=== PATIENT | female | born 1945 | race Caucasian/White ===

== ENCOUNTER 2020-09-17 20:50 | Inpatient (IN) | payer MEDICARE, BC ==
[2020-09-17] MEDS ORDERED: Lisinopril 10 MG TAB ONE (22:01)
[2020-09-17] MEDS ORDERED: Metoprolol Tartrate 50 MG TAB ONE (22:01)
[2020-09-17 22:11] LABS: #Eosinphils 0.3 10x3/uL (0.0-0.5); #Monocytes 0.7 10x3/uL (0.0-1.1); %Basophils 0.5 % (0.0-2.0); %Eosinophils 3.5 % (0.0-6.0); %Lymphocytes 20.8 % (18.0-47.0); %Monocytes 9.4 % (0.0-10.0); %Neutrophils 65.4 % (40.0-75.0); Hemoglobin 12.5 g/dL (12.0-15.5); Mean Corpuscular HGB CONC 32.6 g/dL (32.0-36.0); Mean Corpuscular Hemoglobin 32.3 pg (27.0-33.0); Mean Platelet Volume 10.2 fl (7.4-10.4); Platelet Count 181 10x3/uL (150-450); RBC Distribution Width 13.6 % (11.5-14.5); Red Blood Cell (RBC) Count 3.87 10x6/uL (3.90-5.03); White Blood Cell (WBC) Count 7.7 10x3/uL (3.5-10.5)
[2020-09-17 22:24] LABS: ALT (SGPT) 19 U/L (8-55); AST (SGOT) 19 U/L (5-34); Albumin 4.2 g/dL (3.4-4.8); Alkaline Phosphatase 52 U/L (40-110); Anion Gap 14 mmol/L (10-20); BUN (Urea Nitrogen) 15 mg/dL (9.8-20.1); Bilirubin, Total 0.5 mg/dL (0.2-1.2); Calc. Creatinine Clearance 0 mL/min (70-130); Calcium 8.8 mg/dL (7.8-10.44); Carbon Dioxide 27 mmol/L (23-31); Chloride 105 mmol/L (98-107); Globulin 2.3 g/dL (2.4-3.5); Glucose 103 mg/dL (83-110); Potassium 3.8 mmol/L (3.5-5.1); Protein, Total 6.5 g/dL (5.8-8.1); Sodium 142 mmol/L (136-145)
[2020-09-17 22:50] LABS: CKMB 2.7 ng/mL (0-6.6)
[2020-09-17] MEDS ORDERED: Aspirin 325 MG TAB ONE (23:20)
[2020-09-17] MEDS ORDERED: Nitroglycerin 2% Ointment 1 INCH/1 GM Packet ONE (23:20)
[2020-09-18] MEDS ORDERED: Acetaminophen 325 MG TAB PO PRN (00:13)
[2020-09-18] MEDS ORDERED: Zolpidem Tartrate 5 MG TAB PO PRN (00:13)
[2020-09-18] MEDS ORDERED: Guaifenesin DM 100-10/5 ML UDCUP PO PRN (00:13)
[2020-09-18] MEDS ORDERED: Senokot S 8.6-50 MG TAB PO PRN (00:13)
[2020-09-18] MEDS ORDERED: HYDROcodone/Acetaminophen 5/325 mg Tablet PO PRN (00:13)
[2020-09-18] MEDS ORDERED: ALPRAZolam 0.25 MG TAB PO PRN (00:14)
[2020-09-18] MEDS ORDERED: hydrALAZINE 20 MG/ML VIAL SLOW IVP PRN (00:16)
[2020-09-18 02:25] LABS: CKMB 4.2 ng/mL (0-6.6)
[2020-09-18] MEDS ORDERED: Enoxaparin Sodium 80 MG/0.8 ML SYRINGE SC SCH (05:30)
[2020-09-18 06:50] LABS: Anion Gap 13 mmol/L (10-20); BUN (Urea Nitrogen) 16 mg/dL (9.8-20.1); Calc. Creatinine Clearance 58 mL/min (70-130); Calcium 9.3 mg/dL (7.8-10.44); Carbon Dioxide 28 mmol/L (23-31); Cardiac Risk 2.7 (Less than 4.5); Chloride 105 mmol/L (98-107); Cholesterol 140 mg/dl (< 200 Desired); Glucose 96 mg/dL (83-110); HDL Cholesterol 51 mg/dL (>60 Neg Risk); LDL Cholesterol, Calculated 66 mg/dL; Potassium 4.2 mmol/L (3.5-5.1); Sodium 142 mmol/L (136-145); Triglycerides 116 mg/dL (Less than 150)
[2020-09-18 07:04] LABS: CKMB 4.9 ng/mL (0-6.6)
[2020-09-18] MEDS ORDERED: GUAIFENESIN SF SOLN 200 MG/10 ML UDCUP PO PRN (08:03)
[2020-09-18] MEDS ORDERED: Benzonatate 100 MG CAP PO PRN (08:03)
[2020-09-18] MEDS ORDERED: Ondansetron PF 4 MG/2 ML Vial IVP PRN (08:03)
[2020-09-18] MEDS ORDERED: Ondansetron ODT 4 MG TAB PO PRN (08:03)
[2020-09-18] MEDS ORDERED: Loperamide HCl 2 MG CAP PO PRN (08:03)
[2020-09-18] MEDS ORDERED: Calcium Carbonate 500 MG ChewTAB PO PRN (08:03)
[2020-09-18] MEDS ORDERED: Loratadine 10 MG TAB PO PRN (08:03)
[2020-09-18] MEDS ORDERED: Cepastat Lozenges 1 LOZ PO PRN (08:03)
[2020-09-18] MEDS ORDERED: Sodium Chloride 0.65% Nasal 44 ML BOT EA NARE PRN (08:03)
[2020-09-18] MEDS ORDERED: Carvedilol 6.25 MG TAB PO SCH (08:45)
[2020-09-18] MEDS ORDERED: FLU VACC QS2020-21(65YR UP)/PF 240 MCG/0.7 ML SYRINGE IM ONE (09:00)
[2020-09-18] MEDS: Aspirin 81 mg Enteric Coated Tablet PO SCH (09:00)
[2020-09-18] MEDS: Levothyroxine Sodium 88 MCG TAB PO SCH (09:00)
[2020-09-18] MEDS ORDERED: Metoprolol Tartrate 50 MG TAB PO SCH (09:00)
[2020-09-18] MEDS: Hydrochlorothiazide 25 MG TAB PO SCH (09:00)
[2020-09-18] MEDS ORDERED: Lisinopril/Hydrochlorothiazide 20 mg/12.5 mg Tablet PO SCH (09:00)
[2020-09-18] MEDS ORDERED: Enoxaparin Sodium 40 MG/0.4 ML SYRINGE SC SCH (09:00)
[2020-09-18] MEDS: Lisinopril 20 MG TAB PO SCH (09:01)
[2020-09-18 14:23] LABS: SARS-CoV-2 PCR by NAA Not Detected (NotDetected)
[2020-09-18] MEDS: Carvedilol 6.25 MG TAB PO SCH (16:55)
[2020-09-18] MEDS ORDERED: Rosuvastatin 10 MG TAB PO SCH (21:00)
[2020-09-18] MEDS ORDERED: Calcium Carbonate 600 MG + Vit D TAB PO SCH (21:00)
[2020-09-19 06:50] LABS: #Eosinphils 0.3 10x3/uL (0.0-0.5); #Monocytes 0.7 10x3/uL (0.0-1.1); #Neutrophils 3.7 10x3/uL (1.5-8.4); %Basophils 0.7 % (0.0-2.0); %Eosinophils 4.8 % (0.0-6.0); %Lymphocytes 21.8 % (18.0-47.0); %Monocytes 11.8 % (0.0-10.0); %Neutrophils 60.6 % (40.0-75.0); Hemoglobin 12.5 g/dL (12.0-15.5); Mean Corpuscular Hemoglobin 31.4 pg (27.0-33.0); Mean Corpuscular Volume 98.2 fl (81.6-98.3); Mean Platelet Volume 10.2 fl (7.4-10.4); Platelet Count 156 10x3/uL (150-450); RBC Distribution Width 13.9 % (11.5-14.5); Red Blood Cell (RBC) Count 3.98 10x6/uL (3.90-5.03)
[2020-09-19 07:00] LABS: Anion Gap 16 mmol/L (10-20); BUN (Urea Nitrogen) 18 mg/dL (9.8-20.1); Calc. Creatinine Clearance 59 mL/min (70-130); Calcium 9.4 mg/dL (7.8-10.44); Carbon Dioxide 25 mmol/L (23-31); Chloride 105 mmol/L (98-107); Glucose 104 mg/dL (83-110); Potassium 3.8 mmol/L (3.5-5.1); Sodium 142 mmol/L (136-145)
[2020-09-19] MEDS ORDERED: Enoxaparin Sodium 40 MG/0.4 ML SYRINGE SC SCH (09:00)
[2020-09-19] MEDS: Lisinopril 20 MG TAB PO SCH (09:14)
[2020-09-19] MEDS: Levothyroxine Sodium 88 MCG TAB PO SCH (09:14)
[2020-09-19] MEDS: Hydrochlorothiazide 25 MG TAB PO SCH (09:15)
[2020-09-19] MEDS: Aspirin 81 mg Enteric Coated Tablet PO SCH (09:15)
[2020-09-19] MEDS: Carvedilol 6.25 MG TAB PO SCH (09:16)
[2020-09-19] MEDS ORDERED: Amlodipine 5 MG TAB PO SCH (10:45)
[2020-09-19 11:40] VITALS: BP 137/66; TEMP 97.5
[2020-09-20] MEDS ORDERED: Amlodipine 5 MG TAB PO SCH (09:00)
== END 2020-09-19 14:21 | disposition home or self-care (01) | DRG 305 ==
LOC: CSHERS 20:50 → CSHTELE 09-18 01:45 → OBSVTOIN 09-18 08:02
PROVIDERS: ADMIT Student in an Organized Health Care Education/Training Program; ATTEND Family Medicine
DX: I16.0 Hypertensive urgency (principal); E78.5 Hyperlipidemia, unspecified; Z20.822 Contact with and (suspected) exposure to COVID-19; I12.9 Hypertensive chronic kidney disease with stage 1 through stage 4 chronic kidney disease, or unspecified chronic kidney disease; E03.9 Hypothyroidism, unspecified; N18.32 Chronic kidney disease, stage 3b; R77.8 Other specified abnormalities of plasma proteins; F41.9 Anxiety disorder, unspecified; E66.9 Obesity, unspecified; Z79.82 Long term (current) use of aspirin; Z79.890 Hormone replacement therapy; Z79.899 Other long term (current) drug therapy; Z68.38 Body mass index [BMI] 38.0-38.9, adult
CPT/HCPCS: 36415; 36416; 80048; 80053; 80061; 82553; 83880; 84443; 84484; 85025; 87635; 93005; 93306; 96372; G0378; J1650; U0003; U0005

== ENCOUNTER 2021-08-30 12:11 | Emergency (ER) | payer MEDICARE, BC | END 2021-08-30 13:40 | disposition home or self-care (01) | LOC: CSHERS 12:11 | DX: R60.0 Localized edema (principal); E78.5 Hyperlipidemia, unspecified; E03.9 Hypothyroidism, unspecified; I10 Essential (primary) hypertension ==

== ENCOUNTER 2021-11-29 13:56 | Emergency (ER) | payer MEDICARE, BC ==
[2021-11-29 16:46] LABS: #Eosinphils 0.2 10x3/uL (0.0-0.5); #Monocytes 0.6 10x3/uL (0.0-1.1); #Neutrophils 4.4 10x3/uL (1.5-8.4); %Basophils 0.4 % (0.0-2.0); %Eosinophils 3.4 % (0.0-6.0); %Lymphocytes 20.3 % (18.0-47.0); %Monocytes 9.5 % (0.0-10.0); %Neutrophils 66.1 % (40.0-75.0); Hemoglobin 12.4 g/dL (12.0-15.5); Mean Corpuscular HGB CONC 32.9 g/dL (32.0-36.0); Mean Corpuscular Volume 97.4 fl (81.6-98.3); Mean Platelet Volume 10.3 fl (7.4-10.4); Platelet Count 176 10x3/uL (150-450); RBC Distribution Width 13.6 % (11.5-14.5); Red Blood Cell (RBC) Count 3.87 10x6/uL (3.90-5.03); White Blood Cell (WBC) Count 6.7 10x3/uL (3.5-10.5)
[2021-11-29 16:56] LABS: ALT (SGPT) 13 U/L (8-55); AST (SGOT) 17 U/L (5-34); Albumin 4.1 g/dL (3.4-4.8); Alkaline Phosphatase 54 U/L (40-110); Anion Gap 15 mmol/L (10-20); BUN (Urea Nitrogen) 15 mg/dL (9.8-20.1); Bilirubin, Total 0.6 mg/dL (0.2-1.2); Calc. Creatinine Clearance 0 mL/min (70-130); Calcium 9.5 mg/dL (7.8-10.44); Carbon Dioxide 26 mmol/L (23-31); Chloride 105 mmol/L (98-107); Globulin 2.7 g/dL (2.4-3.5); Glucose 92 mg/dL (83-110); Potassium 3.7 mmol/L (3.5-5.1); Protein, Total 6.8 g/dL (5.8-8.1); Sodium 142 mmol/L (136-145)
[2021-11-29] MEDS ORDERED: Amlodipine 5 MG TAB ONE (17:12)
[2021-11-29 17:30] LABS: Bilirubin Neg (Negative); Blood, Urine Negative (Negative); Clarity Clear (Clear); Glucose, Urine (Dipstick) Normal (Negative); Ketone, Urine Negative (Negative); Leukocyte Negative (Negative); Nitrite Negative (Negative); Protein, Urine (Dipstick) Negative (Neg-Trace); Urobilinogen Normal mg/dL (Less than 2); pH, Urine 6.5 (5.0-9.0)
== END 2021-11-29 18:24 | disposition home or self-care (01) ==
LOC: CSHERS 13:56
DX: I10 Essential (primary) hypertension (principal); R53.1 Weakness; E03.9 Hypothyroidism, unspecified; E78.5 Hyperlipidemia, unspecified; E78.00 Pure hypercholesterolemia, unspecified
CPT/HCPCS: 36415; 71045; 80053; 81003; 84484; 85025; 93005

== ENCOUNTER 2022-08-25 09:05 | Outpatient (CLI) | payer MEDICARE, BC | END 2022-08-25 09:06 | disposition home or self-care (01) | LOC: CSHULT 09:05 | PROVIDERS: ATTEND Internal Medicine Nephrology | DX: N18.30 Chronic kidney disease, stage 3 unspecified (principal) | CPT/HCPCS: 76770 ==

== ENCOUNTER 2022-08-25 09:56 | Outpatient (CLI) | payer MEDICARE, BC | END 2022-08-25 09:57 | disposition home or self-care (01) | LOC: CSHMAMMO 09:56 | PROVIDERS: ATTEND Family Medicine | DX: M81.0 Age-related osteoporosis without current pathological fracture (principal) | CPT/HCPCS: 77080 ==

== ENCOUNTER 2024-08-16 21:33 | Emergency (ER) | payer BC, MEDICARE ==
[2024-08-16] MEDS ORDERED: Ibuprofen 200 MG TAB ONE (23:18)
[2024-08-16] MEDS ORDERED: Acetaminophen 500 MG TAB ONE (23:22)
== END 2024-08-16 23:51 | disposition home or self-care (01) ==
LOC: CSHERS 21:33
DX: S00.83XA Contusion of other part of head, initial encounter (principal); E78.5 Hyperlipidemia, unspecified; I10 Essential (primary) hypertension; Z79.82 Long term (current) use of aspirin; Z79.899 Other long term (current) drug therapy; W10.9XXA Fall (on) (from) unspecified stairs and steps, initial encounter; Y93.89 Activity, other specified
CPT/HCPCS: 70450; 72220